=== PATIENT | male | born 1960 | race Caucasian/White ===

== ENCOUNTER 2018-01-04 14:10 | Emergency (ER) | payer OTHER ==
[2018-01-04 14:24] VITALS: BP 121/93
--- NOTE | 2018-01-04 14:35 | EDPHY ---
H & P Stated Complaint: OUT OF MEDS Time Seen by Provider: 01/04/18 14:34 HPI/ROS: HPI CHIEF COMPLAINT: Medication refill. HISTORY OF PRESENT ILLNESS: This patient 57-year-old male, he presents emergency room requesting that we refill his oxycodone and Flexeril. Patient states he is traveling any from [place]. He is out of his narcotic pain medicine and he would like a refill. He additionally takes lisinopril metoprolol however he states that he has plenty of these does not need a refill on this he only needs refill on his narcotic pain medicine. Past Medical History: Hypertension, chronic pain. Past Surgical History: No recent surgery Social History: Homeless, however states he is traveling from [place] Family History: Noncontributory ROS REVIEW OF SYSTEMS: A comprehensive 10 point review of systems is otherwise negative aside from elements mentioned in the history of present illness. Exam Constitutional appears well nontoxic triage nursing summary reviewed, vital signs reviewed, awake/alert. Eyes normal conjunctivae and sclera, EOMI, PERRLA. HENT normal inspection, atraumatic, moist mucus membranes, no epistaxis, neck supple/ no meningismus, no raccoon eyes. Respiratory clear to auscultation bilaterally, normal breath sounds, no respiratory distress, no wheezing. Cardiovascular rate normal, regular rhythm, no murmur, no edema, distal pulses normal. Gastrointestinal soft, non-tender, no rebound, no guarding, normal bowel sounds, no distension, no pulsatile mass. Genitourinary no CVA tenderness. Musculoskeletal no midline vertebral tenderness, full range of motion, no calf swelling, no tenderness of extremities, no meningismus, good pulses, neurovascularly intact. Skin pink, warm, & dry, no rash, skin atraumatic. Neurologic awake, alert and oriented x 3, AAOx3, moves all 4 extremities equally, motor intact, sensory intact, CN II-XII intact, normal cerebellar, normal vision, normal speech. Psychiatric normal mood/affect. Heme/Lymph/Immune no lymphadenopathy. Differential Diagnosis: The includes but is not limited to in a particular order medication refill, need for narcotic pain medicine need for muscle relaxants. Medical Decision Making: I have declined to refill this patient's narcotics or muscle relaxants as he states he needs a prescription for both and that he is traveling through town and has no local primary care doctor. He states he is from [place]. I recommend that he contact his primary care doctor or if he stays in town in [place] he sets of a primary care physician. I did offer to refills lisinopril metoprolol however he has declined. Source: Patient - Personal History Current Tetanus Diphtheria and Acellular Pertussis (TDAP): Yes - Medical/Surgical History Other PMH: MEASLES, ENCEPHALITIS, AORTIC STENT-AAA REPAIR - Social History Smoking Status: Current every day smoker Constitutional: Initial Vital Signs Temperature (C) 36.7 C 01/04/18 14:22 Heart Rate 96 01/04/18 14:22 Respiratory Rate 16 01/04/18 14:22 Blood Pressure 121/93 H 01/04/18 14:22 O2 Sat (%) 96 01/04/18 14:22 O2 Delivery Mode Room Air Allergies/Adverse Reactions: carisoprodol [From Soma] Allergy (Verified 01/04/18 14:20) Penicillins Allergy (Verified 01/04/18 14:20) Home Medications: Medication Instructions Recorded Flexeril 10 MG (*) 01/04/18 Lisinopril 01/04/18 Metoprolol Tartrate 01/04/18 Oxycodone HCl 01/04/18 Departure - Departure Disposition: Home, Routine, Self-Care Clinical Impression: Medication refill Condition: Good Instructions: Medicine Refill (ED) Additional Instructions: 1. Please follow up with your primary care doctor.
== END 2018-01-04 15:00 | disposition home or self-care (01) ==
DX: Z76.0 Encounter for issue of repeat prescription (principal); I10 Essential (primary) hypertension; F17.200 Nicotine dependence, unspecified, uncomplicated